=== PATIENT | female | born 1955 | race Caucasian/White ===

== ENCOUNTER → 2023-08-03 | Outpatient (CLI) | payer MEDICARE ==
[2023-08-03 18:14] LABS: Appearance,Urine Turbid (Clear); Bilirubin,Urine Negative (Negative); Blood,Urine Negative (Negative); Color,Urine Yellow (Yellow); Ketones,Urine Trace (Negative); Nitrite,Urine Negative (Negative); PH, Urine 5.5
[2023-08-03 18:23] LABS: Bacteria,Urine 1+ (None Seen)
[2023-08-03 19:02] LABS: INR 0.98 sec (0.93-1.11); Prothrombin Time 10.6 sec (9.9-11.9)
[2023-08-03 19:18] LABS: Basophils # (A) 0.08 X 10*3/uL (0.00-0.10); Basophils % (A) 0.9 %; Eosinophils # (A) 0.22 X 10*3/uL (0.04-0.35); Eosinophils % (A) 2.4 %; HCT 45.5 % (37.2-46.3); Lymphocytes # (A) 2.23 X 10*3/uL (0.90-5.00); Lymphocytes % (A) 24.5 %; MCH 29.2 pg (27.0-32.0); MCV 88.7 FL (80.0-97.0); Mean Platelet Volume 10.8 FL (9.5-12.2); Monocytes # (A) 0.85 X 10*3/uL (0.20-1.00); Monocytes % (A) 9.3 %; NRBC Per 100 WBC 0 X 10*3/uL (0.00-0.01); Neutrophils % (A) 62.6 %; Platelet Count 241 X 10*3/uL (140-440); RBC 5.13 X 10*6/uL (4.10-5.20); RDW 14.3 % (11.5-14.5); WBC 9.11 X 10*3/uL (4.50-10.00)
[2023-08-03 20:57] LABS: BUN/Creat Ratio 26.22 Ratio (12.00-20.00); Blood Urea Nitrogen 23.6 mg/dL (9.0-27.0); Calcium 9.9 mg/dL (8.7-10.3); Carbon Dioxide 23.1 mmol/L (21.6-31.8); Chloride 106 mmol/L (96-109); Glucose 99 mg/dL (70-110); Potassium 4.4 mmol/L (3.5-5.5); Sodium 145 mmol/L (135-145)
== END | disposition home or self-care (01) ==
LOC: LABWHC1 13:11
PROVIDERS: ATTEND Orthopaedic Surgery Orthopaedic Surgery of the Spine
DX: Z01.818 Encounter for other preprocedural examination (principal); Z22.322 Carrier or suspected carrier of Methicillin resistant Staphylococcus aureus; M43.10 Spondylolisthesis, site unspecified; R94.31 Abnormal electrocardiogram [ECG] [EKG]
CPT/HCPCS: 36415; 71046; 80048; 81001; 85025; 85610; 85730; 87070; 93005

== ENCOUNTER → 2023-08-16 | Outpatient (CLI) | payer MEDICARE ==
[2023-08-16 13:49] LABS: INR 0.9 (<1.2); Partial Thromboplastin Time 23.9 sec (22.0-30.0); Prothrombin Time 10.1 sec (10.0-12.5)
== END | disposition home or self-care (01) ==
LOC: LABPAT 12:29
PROVIDERS: ATTEND Orthopaedic Surgery Orthopaedic Surgery of the Spine
DX: Z01.818 Encounter for other preprocedural examination (principal)
CPT/HCPCS: 36415; 85610; 85730; 86850; 86900; 86901

== ENCOUNTER 2023-08-25 08:46 | Observation (INO) | payer MEDICARE ==
[~2023-08-25 08:46] MED LIST: LIDOCAINE 1% (10MG/ML) FOR IV START INTRADERMA PRN
[2023-08-25] MEDS: LACTATED RINGERS 1,000 ML IV SCH (09:20)
[2023-08-25] MEDS: LACTATED RINGERS 1,000 ML IV ONE ×4 (09:20→14:48)
[2023-08-25] MEDS: ONDANSETRON 4 MG/2 ML VIAL IVP ONE (09:35)
[2023-08-25] MEDS ORDERED: NEOSTIGMINE 1 MG/ML 10 ML VIAL ONE (09:44)
[2023-08-25] MEDS ORDERED: KETAMINE HCL IN 0.9 % NACL 50 MG/5 ML SYRINGE ONE (09:44)
[2023-08-25] MEDS ORDERED: ePHEDrine 50 MG/ML 1 ML VIAL ONE (09:44)
[2023-08-25] MEDS ORDERED: SUCCINYLCHOLINE CHLORIDE 200 MG/10 ML VIAL IV ONE (09:44)
[2023-08-25] MEDS ORDERED: PROPOFOL 10 MG/ML 20 ML VIAL IV ONE (09:44)
[2023-08-25] MEDS ORDERED: MIDAZOLAM 2 MG/2 ML VIAL ONE (09:44)
[2023-08-25] MEDS ORDERED: ROCURONIUM 10 MG/ML (5 ML VIAL) IV ONE (09:44)
[2023-08-25] MEDS ORDERED: HYDROmorphone (PF) 1 MG/ML ONE (09:44)
[2023-08-25] MEDS ORDERED: LIDOCAINE 1% INJ 10MG/ML (20 ML MDV) ONE (09:44)
[2023-08-25] MEDS ORDERED: GLYCOPYRROLATE 0.2 MG/ML 2 ML VIAL ONE (09:44)
[2023-08-25] MEDS ORDERED: fentaNYL (PF) 50 MCG/ML 2 ML AMP ONE (09:44)
[2023-08-25] MEDS: ceFAZolin 3 GM in SODIUM CHLORIDE 0.9% 100 ML IVPB PRN (09:48)
[2023-08-25] MEDS: ceFAZolin 1,000 MG in SODIUM CHLORIDE 0.9% IRRIGATIO 1,000 ML IRRIGATION PRN ×2 (10:25→13:29)
[2023-08-25] MEDS: LIDOCAINE 1%-EPI 1:100,000 20 ML VIAL SQ ONE (10:25)
[2023-08-25] MEDS: BUPIVACAINE (PF) 0.25% 30 ML VIAL SQ ONE (10:25)
[2023-08-25] MEDS: THROMBIN (BOVINE) 5,000 UNIT VIAL TOPICAL ONE ×2 (10:25)
[2023-08-25] MEDS: SODIUM CHLORIDE 0.9% 100 ML with ceFAZolin 3,000 MG IV ONE (13:28)
[2023-08-25] MEDS ORDERED: HYDROmorphone 1 MG/ML 1 ML SYRINGE IVP PRN (15:09)
[2023-08-25] MEDS ORDERED: SENNOSIDES-DOCUSATE SODIUM 1 EACH TAB PO PRN (15:10)
[2023-08-25] MEDS ORDERED: MAGNESIUM HYDROXIDE 2,400 MG/30 ML CUP PO PRN (15:10)
[2023-08-25] MEDS ORDERED: bisacodyL 10 MG SUPP RECTAL PRN (15:10)
--- NOTE | 2023-08-25 15:24 | P.OP ---
Date of Procedure: 08/25/23 Preoperative Diagnosis: Spinal stenosis L5-S1, L4-5 Grade 3 spondylolisthesis L5-S1, facet arthrosis L4-5 L5-S1, foraminal stenosis L4-5 L5-S1, lower extremity radiculopathy, low back pain, spondylolysis L5 bilaterally, morbid obesity Postoperative Diagnosis: Same Anesthesia: GETA Pathology: none sent Condition: stable Disposition: PACU Description of Procedure: BRIEF OPERATIVE NOTE Preoperative Diagnosis:Spinal stenosis L5-S1, L4-5 Grade 3 spondylolisthesis L5-S1, facet arthrosis L4-5 L5-S1, foraminal stenosis L4-5 L5-S1, lower extremity radiculopathy, low back pain, spondylolysis L5 bilaterally, morbid obesity Postoperative Diagnosis:Spinal stenosis L5-S1, L4-5 Grade 3 spondylolisthesis L5-S1, facet arthrosis L4-5 L5-S1, foraminal stenosis L4-5 L5-S1, lower extremity radiculopathy, low back pain, spondylolysis L5 bilaterally, morbid obesity Procedure: Open laminectomy decompression with wide bilateral foraminotomies L4- 5 L5-S1, open posterior lateral decompression and fusion L4-5 L5-S1, transforaminal interbody fusion L4-5 L5-S1 for a 360 degree fusion, use of CT guidance navigation intraoperatively for hardware placement, local autogenous bone grafting, bone marrow aspirate via the pedicle of L4, use of bone graft supplements Use of spinal neuromonitoring and Cell Saver Surgeon: Dr. Ramos Shank Tapper: Isrrael SUE who is present throughout the entire the case persistence during positioning, dissection, exposure, visualization, and all crucial elements of the case as well as closure. Anesthesia: General anesthesia per Dr. Herrera Estimated blood loss: Approximately 400 cc with 120 given back through Cell Saver Complications: None apparent Components implanted: K2M [place] cannulated pedicle screws measuring 6.5 and 8.5 mm in diameter with 2 rods and 2 capstone interbody cages with DBM bone matrix sheets to supplement the local autogenous bone graft Disposition: To recovery room in good stable condition. OPERATIVE INDICATIONS OPERATIVE SUMMARY The patient is a pleasant 67-year-old female with longstanding history of low back pain and lower extremity radicular symptoms. Patient had been treated conservatively for back pain lower extremity symptoms for extended period but she has been having significant worsening over the past several months. Patient was found to have a dynamic spondylolisthesis at L5-S1 with significant stenosis at both L4-5 and L5-S1 and obvious collapse at that level with stress testing on imaging. She had been through extensive conservative treatment however failed conservative management and exhausted conservative care. We discussed the possibility of surgical intervention with her. After discussing all the risks, patient alternatives and benefits at length, the patient elected to proceed with surgical intervention, signed informed consent, and presented for their procedure. The patient was seen and examined in the preoperative holding area and the surgical site was marked. The patient was given antibiotics and brought to the operating room. The patient was sedated and intubated by anesthesia in standard fashion. The patient was positioned on to the operating room table in a prone position on the appropriate frame which was well-padded and well molded. We were careful to pad any bony prominences and pressure points. We were careful to maintain the patient's cervical spine and good neutral alignment and position throughout. The patient was prepped and draped in a normal standard fashion. An appropriate timeout and keystone protocol performed. We were able to proceed with the surgery. The local wound area was infiltrated with local anesthetic. An incision was made at the midline longitudinally over the appropriate levels at L4-S1. Dissection was taken down subcutaneously to the level of the fascia which was split midline. The patient is morbidly obese and the positioning and dissection and exposure and the case itself was higher degree of difficulty due to increased time and technique for her body habitus. Dissection was taken over the lamina bilaterally over the facet joints and to the transverse processes from L4-S1 bilaterally. Intraoperative x-ray was taken which showed a marker at the appropriate level at L5. With the appropriate level positively confirmed, we were able to proceed with placement of the pedicle holes and screws. The patient had all their twitches back. The wound was copiously irrigated and suctioned dry as had been done periodically throughout the case. Screw holes were established similarly at each level. I was able to connect a credentialing assistant clamp for CT guidance navigation at the spinous process of L5. We able to do a spin intraoperatively with appropriate draping for CT navigation. A sharp awl Jamshidi and CT guidance navigation credentialing assistant was utilized and was used to establish the starting hole. At L4 on the right we had to revise one of the starting holes as it appeared to be medial on the imaging. We initially had some clear fluid from the site which resolved. I explored the area later and did not find any evidence of CSF leak. We are able to reposition for the L4 scr ew on the right and do appropriate positioning at each of the other screw levels L4-L5 and S1 bilaterally. The transverse process or sacral ala was decorticated with a high-speed bur. I was able to use these holes to place the appropriate size screw and good alignment and good position with good bony purchase. The S1 screw on the left did stripped the hole and we had to use a larger screw with an 8.5 millimeter screw to replace which had good fit and fill and bony purchase. When the screws were inserted there were stimulated, and found to have no stimulation at 20 mA. I was able to turn my attention to the decompression. decompression was performed with a combination of rongeurs, curettes, Kerrison rongeurs and a ball-tip feeler. All of the bone that was removed was stripped and morcellized for use as autogenous bone graft later in the case. I was able to obtain good central decompression as well as wide bilateral foraminal decompression. There is no evidence of dural tear or leak. Good hemostasis was maintained. The wound was irrigated and suctioned dry. I performed a complete facetectomy at the appropriate level on the most symptomatic side first at L5-S1 and then L4-5. At L5-S1 I remove the complete Meyer fragment and get excellent central bilateral foraminal decompression. All bone that was removed was saved for local autogenous bone grafting. I was able to gain access to the disc space at the appropriate level/levels. Good hemostasis was maintained. I was able to protect the neurologic structures. The patient had somewhat distorted anatomy at the levels. She had very vertical type lamina and it took extra time for the decompression at each level first L5- S1 and then at L4-5. A discectomy was performed. This provided further decompression. I was also able to perform complete discectomy and endplate preparation with a combination of pituitary curettes, rasps and scrapers. With the interbody space prepared, I was able to do appropriate sizing. The appropriate size cage was chosen. The wound was irrigated and suctioned dry. The interbody space was packed with local autogenous bone graft and a small portion of bone graft substitute, as was the cage itself. Protecting the soft tissue structures, I was able place the cage in good alignment and good position with good fit and fill. There is no evidence of extrusion of the graft material nor protrusion of the interbody device. I was able to get some reduction at the listhesis and had good overall alignment and position. The area was explored particularly where we had seen clear fluid earlier in the case. I did not find any evidence of further CSF leak or clear fluid or drainage. I did not find any dural tear. The wound was irrigated and suctioned dry. With the hardware intact, intraoperative x-ray was again taken which showed good alignment and position of the hardware at the appropriate levels. We were then able to measure, contour and place the rods and appropriate hardware bilaterally. I was able to place capcrews, tighten them down, and torque them off appropriately. With this intact I was able to place the local autogenous bone graft with additional bone graft enhancer as necessary into the posterior lateral gutters bilaterally. With the bone graft intact, a stable construct, and good decompression at the appropriate levels, we were able to proceed with closure. Good hemostasis was maintained. There is no evidence of dural tear or leak. The fascia was closed for a watertight closure. The subcutaneous tissue was closed over a superficial drain. The subcuticular tissue was closed with absorbable suture. The wound was cleaned and dried and dressed with the appropriate dressing. The drapes were broken down. The patient was gently rolled back onto their hospital bed being careful to maintain their cervical spine and good neutral alignment and position. They were woken up by anesthesia, extubated, and brought to the recovery room in good stable condition. The patient will be admitted to the hospital for appropriate postoperative care, medical management and monitoring. We will continue to follow them closely about the postoperative course.
[2023-08-25] MEDS: HYDROmorphone 0.5 MG/0.5 ML SYRINGE IVP PRN ×2 (15:51→22:51)
--- NOTE | 2023-08-25 16:05 | XR ---
EXAMINATION TYPE: XR lumbar spine 2 or 3V, FL guidance operating room DATE OF EXAM: 08/25/2023 Comparison: None Clinical History: 67-year-old female TRANS LUMBAR FUSION LUMBAR Findings: Intraoperative fluoroscopy during L4-S1 fusion of the lumbar spine. 31 sec fluoro time. 7960.89 mGycm2 DAP. 7 images scanned.
[2023-08-25] MEDS: droPERidol 5 MG/2 ML VIAL IVP ONE (16:07)
[2023-08-25] MEDS: BENZOCAINE/MENTHOL LOZENG 1 EACH LOZENGE MUCOUS MEM PRN (17:26)
[2023-08-25] MEDS: ceFAZolin 3 GM in SODIUM CHLORIDE 0.9% 100 ML IVPB SCH (17:26)
[2023-08-25] MEDS: GABAPENTIN 300 MG CAP PO SCH (17:26)
[2023-08-25] MEDS: ONDANSETRON 4 MG/2 ML VIAL IVP PRN (18:53)
[2023-08-25] MEDS: POTASSIUM CHLORIDE ER 20 MEQ TAB.ER PO SCH (20:17)
[2023-08-25] MEDS: METOPROLOL TARTRATE 50 MG TAB PO SCH (20:17)
[2023-08-25] MEDS: traMADol 50 MG TAB PO PRN (20:18)
--- NOTE | 2023-08-25 22:34 | CONS ---
CONSULTATION REASON FOR CONSULTATION: Advice regarding hypertension, hyperlipidemia, requested by Orthopedic Surgery. HISTORY OF PRESENT ILLNESS: This is a 67-year-old woman with a past medical history of hypertension, hyperlipidemia, underwent laminectomy and decompression for spondylolisthesis and spinal stenosis. The patient complains of some sore throat at this time. There is no history of any fever, rigors, or chills at this time. PAST MEDICAL HISTORY: Hypertension, hyperlipidemia, history of DJD. Rest of the history and rest of the chart is also reviewed. HOME MEDICATIONS: Reviewed include Ultram. Doses and rest of medications reviewed. ALLERGIES: None. FAMILY HISTORY: History of breast cancer. SOCIAL HISTORY: No history of smoking or alcohol. REVIEW OF SYSTEMS: Fourteen-point review is negative except as mentioned earlier. PHYSICAL EXAMINATION: VITAL SIGNS: Pulse 62, blood pressure 140/69, respirations 22. HEENT: Conjunctivae normal. NECK: No JVD. CARDIOVASCULAR: S1, S2. RESPIRATIONS: Breath sounds diminished at the bases. No rhonchi. No crackles. ABDOMEN: Soft, nontender. No mass. LEGS: No edema. NERVOUS SYSTEM: Nonfocal. SKIN: No ulcer, rash, bleeding. JOINTS: No active deforming arthropathy. LABORATORY DATA: The preop labs; CBC, coags, and BMP within normal limits. ASSESSMENT: 1. Status post lumbar laminectomy and decompression for lumbar spondylolisthesis and as well as spinal stenosis. 2. Hypertension. 3. Hyperlipidemia. 4. Degenerative joint disease. 5. History of gout. 6. Multiple medical issues. RECOMMENDATIONS AND DISCUSSION: This is a 67-year-old woman, who presented with multiple medical issues. At this time, I recommend to continue current medications. Monitor blood pressure closely. DVT prophylaxis. Incentive spirometry. Resume the home medications. We will closely monitor. Further recommendations to follow. Recommend close follow with primary physician after discharge. MMODL / IJN: [id number] /
[2023-08-25] MEDS: SODIUM CHLORIDE 0.9% 1,000 ML IV SCH (22:53)
[2023-08-26] MEDS: HYDROcodone/APAP 5-325MG 1 EACH TAB PO PRN (02:44)
[2023-08-26] MEDS: CYCLOBENZAPRINE 10 MG TAB PO PRN (02:45)
[2023-08-26] MEDS: LEVOTHYROXINE 100 MCG TAB PO SCH (06:54)
[2023-08-26] MEDS: SENNOSIDES-DOCUSATE SODIUM 1 EACH TAB PO SCH (08:57)
[2023-08-26] MEDS: amLODIPine 5 MG TAB PO SCH (08:57)
[2023-08-26] MEDS: ATORVASTATIN 20 MG TAB PO SCH (08:57)
[2023-08-26] MEDS: allopurinoL 300 MG TAB PO SCH (08:57)
[2023-08-26] MEDS: VALSARTAN 160 MG TAB PO SCH (08:58)
[2023-08-26] MEDS: FUROSEMIDE 80 MG TAB PO SCH (08:58)
[2023-08-26 10:31] LABS: Basophils # (A) 0.04 X 10*3/uL (0.00-0.10); Basophils % (A) 0.3 %; Eosinophils # (A) 0 X 10*3/uL (0.04-0.35); Eosinophils % (A) 0 %; HCT 37.6 % (37.2-46.3); Lymphocytes # (A) 1.16 X 10*3/uL (0.90-5.00); Lymphocytes % (A) 8.7 %; MCH 29.3 pg (27.0-32.0); MCHC 31.9 g/dL (32.0-37.0); MCV 91.7 FL (80.0-97.0); Mean Platelet Volume 10.7 FL (9.5-12.2); Monocytes # (A) 1.29 X 10*3/uL (0.20-1.00); Monocytes % (A) 9.6 %; NRBC Per 100 WBC 0 X 10*3/uL (0.00-0.01); Neutrophils # (A) 10.87 X 10*3/uL (1.80-7.70); Neutrophils % (A) 81.1 %; Platelet Count 214 X 10*3/uL (140-440); RDW 14.3 % (11.5-14.5)
[2023-08-26 10:39] LABS: BUN/Creat Ratio 15.62 Ratio (12.00-20.00); Blood Urea Nitrogen 12.5 mg/dL (9.0-27.0); Calcium 8.6 mg/dL (8.7-10.3); Carbon Dioxide 23.9 mmol/L (21.6-31.8); Chloride 107 mmol/L (96-109); Glucose 146 mg/dL (70-110); Potassium 3.6 mmol/L (3.5-5.5); Sodium 142 mmol/L (135-145)
--- NOTE | 2023-08-26 10:42 | XR ---
EXAMINATION TYPE: XR chest 1V portable DATE OF EXAM: 08/26/2023 HISTORY: Shortness of breath. COMPARISON: 08/03/2023 TECHNIQUE: Single view of the chest is submitted. FINDINGS: Demonstrated are scattered senescent parenchymal change. There is no evidence for focal infiltrate. The heart is stable. Hilar and mediastinal structures are within normal limits. Degenerative changes are seen of the dorsal spine. IMPRESSION: 1. Chronic changes without evidence for acute pulmonary disease.
--- NOTE | 2023-08-26 11:13 | P.PN ---
Progress Note - Text Progress Note Date: 08/26/23 Postoperative day #1 Patient is seen and examined today at bedside. The patient has some pain around the surgical site as expected. Pain is being controlled with medication. She has been up out of bed she is sitting in her chair. She said she was having some headaches while in bed but they seem to be subsiding while she is sitting up. Physical Exam Afebrile with stable vital signs Abdomen is soft nontender. Chest has good excursion deep and space expiration The incision site is clean dry and intact. No erythema there is no purulence. The drain is intact with small drainage Extremities have not had neurologic change from prior to surgery. She has sustained dorsiflexion plantarflexion EHL she easily able to lift her legs up off the bed and floor Calves and thighs were soft nontender without evidence of DVT. Assessment/Plan Postoperative day #1 status post open lumbar decompression and fusion L4-5 L5-S1 for her severe spondylolisthesis at L5-S1 with stenosis L4-5 L5-S1 Patient is progressing as expected from the surgery. She is already been up into a chair which is encouraging. We should discontinue her Watkins today We will continue to increase the patient's mobilization with therapy. She had a bit of headache this morning. It does not seem to be specifically po sitional. She feels that is resolving with her sitting up. Will continue to monitor this. We will continue pain control with oral or IV medications. We'll continue to follow patient closely.
[2023-08-26] MEDS: ACETAMINOPHEN TAB 325 MG TAB PO PRN (12:13)
[2023-08-26] MEDS: Acetaminophen-Codeine 300-30mg TAB PO PRN (20:13)
--- NOTE | 2023-08-26 23:28 | PN ---
PROGRESS NOTE DATE OF SERVICE: 08/26/2023 SUBJECTIVE: This is a 67-year-old woman who was admitted after lumbar laminectomy, is improving significantly. No chest pain. No palpitations. No fever. Chest x-ray showed only chronic changes. OBJECTIVE: VITAL SIGNS: Temperature 99.8, pulse 93, blood pressure 140/70, respirations 20. CHEST: Clear to auscultation. CARDIOVASCULAR: S1, S2. ABDOMEN: Soft. BACK: Status post surgery. LABORATORY DATA: WBC 13.4. ASSESSMENT: 1. Status post lumbar laminectomy and decompression for lumbar spondylolisthesis and as well as spinal stenosis. 2. Increased WBC, possibly reactive. 3. Hypertension. 4. Hyperlipidemia. 5. Degenerative joint disease. 6. History of gout. 7. Multiple medical issues. RECOMMENDATIONS: Recommend to continue current management. Continue symptomatic treatment. I will recommend repeat labs tomorrow. Incentive spirometry. Monitor for any fever. There is no evidence of any infection currently. I would also recommend UA with micro. Further recommendations to follow. MMODL / IJN: [id number] /
--- NOTE | 2023-08-27 08:43 | P.PN ---
Progress Note - Text Progress Note Date: 08/27/23 Orthopedic Spine History of present illness: Patient is a pleasant 68-year-old female who is seen and examined at the bedside following posterior lateral decompression and fusion performed Wednesday. Patient states they are doing okay post operatively. She does have some right- sided low back pain with some right lower extremity radiculopathy. Her pain is currently being managed with Tylenol #3 and cyclobenzaprine. Currently does not complain of nausea, vomiting, fever, or chills. Patient states pain has been adequately controlled. Patient is eating and voiding freely without difficulty. She has been able to ambulate to the restroom. She is currently sitting in a bedside chair. She has not had a bowel movement but is passing gas. She denies any abdominal pain. Currently, she states she is unsure whether she would feel ready for discharge home in the next couple days and would consider discharge to a rehabilitation facility. We will plan for consultation with case management for discharge planning. She is currently utilizing a walker to aid in ambulation and is encouraged to continue doing so. Patient is being seen and examined by medicine for postoperative medical management Physical Exam Lumbar Fusion: Status post surgical day number 2 Patient is awake, alert, and oriented 3 Vital signs stable Good chest excursion with deep inspiration and expiration Dorsiflexion, plantarflexion, and extensor hallucis longus positive sustained bilaterally No signs or symptoms of DVT; no calf pain; pneumatic cuffs intact bilateral lower extremities Optifoam dressings are clean, dry, and intact over the lumbar spine and right iliac crest; no erythema, purulence, or signs of infection Neurovascularly intact bilaterally lower extremities Hemovac drain is discontinued at the bedside; no active drainage from the Hemovac drain site Assessment: Status post L4-5 and L5-S1 minimally invasive posterior lateral decompression and fusion with transforaminal lumbar interbody fusion L5-S1 grade 3 spondylolisthesis L4-5 and L5-S1 facet arthrosis L4-5 and L5-S1 foraminal stenosis Right lower extremity radiculopathy L5 bilateral spondylolysis Low back pain Morbid obesity Hypertension Hypothyroidism Plan: 1. Ambulate as tolerated; work with Physical Therapy to increase mobilization 2. Continue pain control with IV and oral medications; will plan to begin we aning the patient off of IV narcotic medication in anticipation for discharge home in the next 1-2 days; she may continue with Tylenol #3 and cyclobenzaprine 3. Dressings to remain intact with Optifoam; patient may shower with dressings intact; Hemovac drain has been discontinued at the bedside 4. Medical management can continue to manage patient for patient's other medical diagnoses 5. We will continue to follow the patient closely; patient is progressing but is progressing slowly. Depending on her progress, we may plan for discharge home over the next 1 to 2 days. Given her ongoing difficulty with her mobilization and ambulation, we did discuss she may need discharge to a rehabilitation facility. Consultation has been placed with case management for discharge planning. 6. Patient can follow-up with Isrrael Lee PA-C or Dr. Jonn Ramos at [facility] in 2-3 weeks following discharge
[2023-08-27 10:31] LABS: Basophils # (A) 0.06 X 10*3/uL (0.00-0.10); Basophils % (A) 0.4 %; Eosinophils # (A) 0.01 X 10*3/uL (0.04-0.35); Eosinophils % (A) 0.1 %; HCT 36.8 % (37.2-46.3); HGB 11.7 g/dL (12.0-15.0); Lymphocytes # (A) 0.96 X 10*3/uL (0.90-5.00); Lymphocytes % (A) 6.6 %; MCH 29.9 pg (27.0-32.0); MCHC 31.8 g/dL (32.0-37.0); MCV 94.1 FL (80.0-97.0); Monocytes # (A) 1.47 X 10*3/uL (0.20-1.00); Monocytes % (A) 10.1 %; NRBC Per 100 WBC 0 X 10*3/uL (0.00-0.01); Neutrophils # (A) 11.96 X 10*3/uL (1.80-7.70); Neutrophils % (A) 82.4 %; Platelet Count 173 X 10*3/uL (140-440); RBC 3.91 X 10*6/uL (4.10-5.20); RDW 14.5 % (11.5-14.5); WBC 14.52 X 10*3/uL (4.50-10.00)
--- NOTE | 2023-08-28 01:49 | PN ---
PROGRESS NOTE DATE OF SERVICE: 08/27/2023 SUBJECTIVE: This 68-year-old woman was admitted after lumbar laminectomy, is improving significantly. No chest pain, no palpitations, no fever. OBJECTIVE: VITAL SIGNS: Pulse 82, blood pressure 140/70, respirations 15. CHEST: clear ABDOMEN: Soft. LEGS: No edema, no swelling. LABORATORY DATA: WBC 14.52. ASSESSMENT: 1. Status post lumbar laminectomy, decompression, and lumbar spondylosis as well as spinal stenosis. 2. Increased WBC, possibly reactive. 3. Hypertension. 4. Hypertension. 5. DJD. 6. History of gout. 7. Multiple medical issues. RECOMMENDATIONS: Recommended to continue current management, continue symptomatic treatment. Incentive spirometry. DVT prophylaxis. Closely follow with Orthopedic surgery. Further recommendations to follow. MMODL / IJN: [id number] / MTDD
--- NOTE | 2023-08-28 09:59 | P.PN ---
Progress Note - Text Progress Note Date: 08/28/23 Postoperative day #3 Patient is seen and examined today at bedside. She is up in a chair. We called her and he is on speaker phone with us. The patient has some pain around the surgical site as expected. Pain is being controlled with medication. She has improved her mobilization but still has troubles on her right lower extremity down her leg where she has always had issues. She does not feel very secure on her right leg when she stands but is able to stand and put full weight on her leg. She has difficulty lifting her leg up. Physical Exam Afebrile with stable vital signs Abdomen is soft nontender. Chest has good excursion deep and space expiration The incision site is clean dry and intact. No erythema there is no purulence. There is no drainage. Appears to be healing well. Extremities have not had neurologic change from prior to surgery. She has sustained dorsiflexion plantarflexion EHL intact bilaterally. She is obese. Her sensations intact. Calves and thighs were soft nontender without evidence of DVT. Assessment/Plan Postoperative day #3 status post open decompression fusion L4-5 L5-S1 for her high-grade spondylolisthesis with severe stenosis Lower extreme radiculopathy Patient is progressing as expected from the surgery. She still has significant difficulty with her ambulation but she is able to stand on her own from her chair with her walker. she still needs standby assist, and is not able to do any stairs We will continue to increase the patient's mobilization with therapy. She has not yet had a bowel movement but she is passing gas. She is tolerating regular diet. We will see if she continues to make progress and turn the corner with her mobility and independence in the next 1 to 2 days. If she is not safe for home, Wednesday, then will plan for [facility] or home with home health. We will continue pain control with oral or IV medications. We'll continue to follow patient closely.
[2023-08-28 12:57] LABS: Appearance,Urine Clear (Clear); Bilirubin,Urine Negative (Negative); Blood,Urine Negative (Negative); Color,Urine Colorless; Glucose,Urine (UA) Negative (Negative); Ketones,Urine Negative (Negative); Leukocyte Esterase,Urine Negative (Negative); Nitrite,Urine Negative (Negative); Protein,Urine Negative (Negative); Specific Gravity,Urine 1.008 (1.001-1.035); Urobilinogen,Urine <2.0 mg/dL (<2.0)
[2023-08-28] MEDS: HEPARIN SODIUM,PORCINE 5,000 UNIT/ML 1 ML VIAL SQ SCH (16:00)
--- NOTE | 2023-08-29 01:58 | PN ---
PROGRESS NOTE DATE OF SERVICE: 08/28/2023 SUBJECTIVE: This is a 68-year-old woman who was admitted after lumbar laminectomy, is being closely monitored. No chest pain, no palpitation. OBJECTIVE: VITAL SIGNS: Pulse is 75, blood pressure 100/62, respirations 16. CHEST: Clear to auscultation. CARDIOVASCULAR: S1, S2. ABDOMEN: Soft. BACK: Status post surgery. LABORATORY DATA: WBC 14.5. UA is negative. ASSESSMENT: 1. Status post lumbar laminectomy decompression for lumbar spondylolisthesis as well as spinal stenosis, increased WBC, possibly reactive. 2. Multiple medical issues. RECOMMENDATIONS: Recommended to continue current management, continue symptomatic treatment. Repeat labs. We will observe for any fever. Continue incentive spirometry. Closely follow with Orthopedic surgery. DVT prophylaxis. Further recommendations to follow. MMODL / IJN: [id number] /
--- NOTE | 2023-08-29 09:19 | P.PN ---
Progress Note - Text Progress Note Date: 08/29/23 Postoperative day #4 Patient is seen and examined today at bedside. The patient has some pain around the surgical site as expected. She feels like she is moving somewhat better but still has spasm in her back and some radicular symptoms of the right leg. She also has some occasional numbness tingling at the left small and ring finger. She has good strength in her left hand. She denies nausea or vomiting. She has not yet had a bowel movement but she is passing gas. Pain is being controlled with medication. Physical Exam Afebrile with stable vital signs Abdomen is soft nontender. Chest has good excursion deep and space expiration The incision site is clean dry and intact. No erythema there is no purulence. The dressing is intact and there is no drainage. Extremities have not had neurologic change from prior to surgery. She has sustained dorsiflexion plantarflexion EHL of bilateral lower extremities. Her thighs and calf soft nontender. Her left upper extremity she has full active and passive range of motion throughout Calves and thighs were soft nontender without evidence of DVT. Assessment/Plan Postoperative day #4 status post open decompression fusion L4-5 L5-S1 for stenosis with high-grade listhesis at L5-S1 and lower extremity radiculopathy I think the patient has some residual radicular symptoms at her right leg along with some possible radiculitis from her surgery. We had a long discussion in these regards and her strength is still intact and we can continue to monitor this as she heals and progresses over the next several weeks to months. The patient is making steady progress and is getting more mobile on her own. She is still not had a bowel movement and I think that she should have abdominal before she is able to be discharged home. Is difficult to determine if she is completely safe with her mobility and hopefully she will be okay for discharge home tomorrow eventually with home health versus the possibility of transfer to retirement tomorrow. Patient is progressing as expected from the surgery, albeit somewhat slowly with her bowel movements and we should be able to make a determination for placement tomorrow versus home. We will continue to increase the patient's mobilization with therapy. It is okay for the patient to shower with her dressing intact. We will continue pain control with oral or IV medications. We'll continue to follow patient closely.
[2023-08-29 09:26] LABS: Basophils # (A) 0.05 X 10*3/uL (0.00-0.10); Basophils % (A) 0.5 %; Eosinophils # (A) 0.24 X 10*3/uL (0.04-0.35); Eosinophils % (A) 2.2 %; HCT 31.4 % (37.2-46.3); HGB 9.9 g/dL (12.0-15.0); Lymphocytes # (A) 2.34 X 10*3/uL (0.90-5.00); Lymphocytes % (A) 21.9 %; MCHC 31.5 g/dL (32.0-37.0); MCV 95.2 FL (80.0-97.0); Mean Platelet Volume 11.2 FL (9.5-12.2); Monocytes # (A) 1.15 X 10*3/uL (0.20-1.00); Monocytes % (A) 10.8 %; NRBC Per 100 WBC 0 X 10*3/uL (0.00-0.01); Neutrophils # (A) 6.83 X 10*3/uL (1.80-7.70); Neutrophils % (A) 63.9 %; Platelet Count 197 X 10*3/uL (140-440); WBC 10.68 X 10*3/uL (4.50-10.00)
[2023-08-29 11:46] LABS: BUN/Creat Ratio 26.43 Ratio (12.00-20.00); Blood Urea Nitrogen 18.5 mg/dL (9.0-27.0); Calcium 8.4 mg/dL (8.7-10.3); Carbon Dioxide 24.1 mmol/L (21.6-31.8); Chloride 103 mmol/L (96-109); Glucose 105 mg/dL (70-110); Potassium 4.3 mmol/L (3.5-5.5); Sodium 139 mmol/L (135-145)
--- NOTE | 2023-08-29 21:58 | PN ---
PROGRESS NOTE DATE OF SERVICE: 08/29/2023 SUBJECTIVE: This 68-year-old woman was admitted after lumbar laminectomy, is improving significantly. No chest pain, no palpitations, no fever. The patient did have bowel movement. OBJECTIVE: VITAL SIGNS: Pulse 78, blood pressure n, respirations 17. CHEST: Breath sounds diminished at the bases. ABDOMEN: Soft. NERVOUS SYSTEM: Nonfocal. LABORATORY DATA: WBC 10.68, improved. Rest of the labs are noted. ASSESSMENT: 1. Status post lumbar laminectomy decompression for lumbar spondylosis as well as spinal stenosis, improving. 2. Increased WBC, possibly reactive, improving. 3. Multiple medical issues. RECOMMENDATIONS: Recommended to continue current management, continue symptomatic treatment. I will recommend repeat CBC. DVT prophylaxis. Closely follow with Dr. Hays. KIMBER / TRINA: [id number] / MTDD
[2023-08-30 08:36] LABS: Basophils # (A) 0.06 X 10*3/uL (0.00-0.10); Basophils % (A) 0.8 %; Eosinophils % (A) 3.8 %; HCT 32.2 % (37.2-46.3); HGB 10.6 g/dL (12.0-15.0); Lymphocytes # (A) 1.96 X 10*3/uL (0.90-5.00); Lymphocytes % (A) 24.9 %; MCH 30.1 pg (27.0-32.0); MCHC 32.9 g/dL (32.0-37.0); MCV 91.5 FL (80.0-97.0); Monocytes % (A) 11.4 %; NRBC Per 100 WBC 0 X 10*3/uL (0.00-0.01); Neutrophils # (A) 4.61 X 10*3/uL (1.80-7.70); Neutrophils % (A) 58.5 %; Platelet Count 203 X 10*3/uL (140-440); RBC 3.52 X 10*6/uL (4.10-5.20); WBC 7.88 X 10*3/uL (4.50-10.00)
--- NOTE | 2023-08-30 09:17 | P.DS ---
Providers Date of admission: 08/27/23 14:24 Expected date of discharge: 08/30/23 Attending physician: Lilly Ramos Consults: 08/25/23 15:10 Consult Physician Routine Consulting Provider: Shannan Kuhn Consult Reason/Comments: Medical management Do you want consulting provider notified?: Yes Primary care physician: Stephanie Pat DO - Discharge Diagnosis(es) (1) Status post lumbar spinal fusion Current Visit: Yes Status: Acute (2) Spondylolysis of lumbar region Current Visit: Yes Status: Acute (3) Spondylolisthesis, grade 3 Current Visit: Yes Status: Acute (4) Low back pain Current Visit: Yes Status: Acute (5) Foraminal stenosis of lumbar region Current Visit: Yes Status: Acute (6) Lumbar facet arthropathy Current Visit: Yes Status: Acute (7) Lumbar back pain with radiculopathy affecting right lower extremity Current Visit: Yes Status: Acute (8) Morbid obesity Current Visit: Yes Status: Acute (9) Hypertension Current Visit: Yes Status: Acute (10) Hypothyroidism Current Visit: Yes Status: Acute Hospital Course: Patient is a pleasant 68-year-old female who presented with L5-S1 grade 3 spondylolisthesis, L4-5 and L5-S1 facet arthrosis, L4-5 and L5-S1 foraminal stenosis, Right lower extremity radiculopathy, low back pain, and L5 bilateral spondylolysis who failed outpatient conservative therapy. She was admitted for an L4-5 and L5-S1 minimally invasive posterior lateral decompression and fusion with transforaminal lumbar interbody fusion. She has been progressing slowly postoperatively. She has made some progress over the weekend but still does not feel she could manage at home. Currently, we are planning for discharge to a rehabilitation facility if medically cleared and approved by her insurance. Patient feels she would be ready for discharge to rehab today. Condition on day of discharge stable. Patient will be discharged rehab. Donavon alcocer was previously cleared for surgical intervention. Patient currently denies any nausea, vomiting, fever, or chills. Patient is eating and voiding freely without difficulty. Surgical dressing has been removed. Patient may shower without a dressing at that time. Patient should refrain from driving until at least after their first follow-up appointment in the office. Patient should avoid excessive bending, lifting, and twisting; no lifting greater than 10 pounds. She is encouraged to utilize a walker to aid in ambulation as needed. MAPS has been reviewed. An "Opiod Start Talking" Form has been signed and placed in the patient's chart. A prescription has been written for tramadol 50 mg, 1-2 tabs, every 6 hours, as needed for acute pain, dispense #56 and placed in the patient's chart. She is given prescription for cyclobenzaprine, 10 mg, 1 tab, 3 times daily, as needed for muscle spasm, dispense #60. Prescription for Senokot-S, 1 tab, twice daily, as needed for constipation, dispense #60. She may resume her other previously prescribed home medications while avoiding anti-inflammatory medications over the next 6 weeks postoperatively. Patient needs medical clearance prior to discharge to rehab. Medicine to complete the med rec. Patient's other medical diagnoses include hypertension, hypothyroidism, and morbid obesity. Patient has had a bowel movement. Physical Exam Lumbar Fusion: Status post surgical day number 5 Patient is awake, alert, and oriented 3 Vital signs stable Good chest excursion with deep inspiration and expiration Dorsiflexion, plantarflexion, and extensor hallucis longus positive sustained bilaterally No signs or symptoms of DVT; no calf pain; pneumatic cuffs intact bilateral lower extremities Optifoam dressings are clean, dry, and intact over the lumbar spine Surgical dressing has been removed. No erythema, purulence, active drainage, or signs of infection at the surgical incision site Patient is able to perform good dorsiflexion plantarflexion bilaterally Procedures: L4-5 and L5-S1 minimally invasive posterior lateral decompression and fusion with transforaminal lumbar interbody fusion Patient Condition at Discharge: Stable Plan - Discharge Summary Discharge Rx Participant: Yes New Discharge Prescriptions: New Cyclobenzaprine [Flexeril] 10 mg PO TID PRN #60 tab PRN Reason: Muscle Spasm traMADol HCl [Ultram] 50 mg PO Q6H PRN #56 tab PRN Reason: Pain Sennosides-Docusate Sodium [Senokot-S] 1 tab PO BID PRN #60 tablet PRN Reason: Constipation No Action Metoprolol Tartrate [Lopressor] 50 mg PO BID Furosemide [Lasix] 80 mg PO DAILY traMADol HCL 50 mg PO BID PRN PRN Reason: Pain Rosuvastatin [Crestor] 10 mg PO DAILY Potassium Chloride ER [K-Dur 20] 20 meq PO BID Levothyroxine Sodium [Synthroid] 100 mcg PO DAILY allopurinoL 600 mg PO DAILY Amlodipine Besylate/Valsartan [Amlodipine Besylate/Valsartan 5-320 mg] 1 tab PO DAILY Gabapentin 300 mg PO TID Unk Tumeric Gummie 1 tab PO DAILY Unk Naprosyn 1 tab PO DAILY PRN PRN Reason: Pain Discharge Medication List Amlodipine Besylate/Valsartan [Amlodipine Besylate/Valsartan 5-320 mg] 1 tab PO DAILY 08/20/23 [History] Furosemide [Lasix] 80 mg PO DAILY 08/20/23 [History] Gabapentin 300 mg PO TID 08/20/23 [History] Levothyroxine Sodium [Synthroid] 100 mcg PO DAILY 08/20/23 [History] Metoprolol Tartrate [Lopressor] 50 mg PO BID 08/20/23 [History] Potassium Chloride ER [K-Dur 20] 20 meq PO BID 08/20/23 [History] Rosuvastatin [Crestor] 10 mg PO DAILY 08/20/23 [History] Unk Naprosyn 1 tab PO DAILY PRN 08/20/23 [History] Unk Tumeric Gummie 1 tab PO DAILY 08/20/23 [History] allopurinoL 600 mg PO DAILY 08/20/23 [History] traMADol HCL 50 mg PO BID PRN 08/20/23 [History] Cyclobenzaprine [Flexeril] 10 mg PO TID PRN #60 tab 08/30/23 [Rx] Sennosides-Docusate Sodium [Senokot-S] 1 tab PO BID PRN #60 tablet 08/30/23 [Rx] traMADol HCl [Ultram] 50 mg PO Q6H PRN #56 tab 08/30/23 [Rx] Follow up Appointment(s)/Referral(s): Isrrael Lee PAC [PHYSICIAN AIRCRAFT ELECTRICIAN] - 09/06/23 3:30 pm (Patient may follow-up with Isrrael Lee PA-C or Dr. Jonn Ramso at [facility] in 2-3 weeks following discharge. ) Activity/Diet/Wound Care/Special Instructions: 1. Patient may shower with Optifoam dressing intact. 2. Patient may remove Optifoam dressing in 3 days and shower without a dressing at that time. 3. Patient should refrain from driving until at least after their first follow- up appointment in the office. 4. Patient should avoid excessive bending, twisting, lifting; avoid overhead lifting; no lifting greater than 10 pounds 5. Take medications as prescribed 6. Patient may utilize walker to aid in ambulation as needed. 7. Patient should avoid anti-inflammatory medications over the next 6 weeks postoperatively 8. Do not soak in tub Discharge Disposition: TRANSFER TO SNF/ECF
--- NOTE | 2023-08-30 21:30 | PN ---
PROGRESS NOTE DATE OF SERVICE: 08/30/2023 SUBJECTIVE: This 68-year-old woman was admitted with lumbar laminectomy symptoms and significant no chest pain no palpitation. OBJECTIVE: VITAL SIGNS: Pulse is 73 blood pressure 120/27 respirations 17 chest is diffuse #7 issues. ABDOMEN: Soft, nontender legs no stroke. LABORATORY DATA: WBC 7.8. ASSESSMENT: 1. Status post lumbar laminectomy decompression for lumbar spondylolysis as well as spinous is improving. 2. Increased WBC, possibly reactive, improved. 3. Multiple medical issues. RECOMMENDATIONS: Recommended to continue current management recommend resume the home medications. Follow closely with primary physician. DVT prophylaxis and rest of the recommendations per Orthopedic surgery. MMODL / IJN: [id number] /
[2023-08-31 02:07] VITALS: PULSE 71
[2023-08-31 07:36] VITALS: BP 107/69; RESP 18; TEMP 98.4
--- NOTE | 2023-08-31 08:35 | P.DS ---
Providers Date of admission: 08/27/23 14:24 Expected date of discharge: 08/31/23 Attending physician: Lilly Ramos Consults: 08/25/23 15:10 Consult Physician Routine Consulting Provider: Shannan Kuhn Consult Reason/Comments: Medical management Do you want consulting provider notified?: Yes Primary care physician: Stephanie Pat DO - Discharge Diagnosis(es) (1) Status post lumbar spinal fusion Current Visit: Yes Status: Acute (2) Spondylolysis of lumbar region Current Visit: Yes Status: Acute (3) Spondylolisthesis, grade 3 Current Visit: Yes Status: Acute (4) Low back pain Current Visit: Yes Status: Acute (5) Foraminal stenosis of lumbar region Current Visit: Yes Status: Acute (6) Lumbar facet arthropathy Current Visit: Yes Status: Acute (7) Lumbar back pain with radiculopathy affecting right lower extremity Current Visit: Yes Status: Acute (8) Morbid obesity Current Visit: Yes Status: Acute (9) Hypertension Current Visit: Yes Status: Acute (10) Hypothyroidism Current Visit: Yes Status: Acute Hospital Course: Patient is a pleasant 68-year-old female who presented with L5-S1 grade 3 spondylolisthesis, L4-5 and L5-S1 facet arthrosis, L4-5 and L5-S1 foraminal stenosis, Right lower extremity radiculopathy, low back pain, and L5 bilateral spondylolysis who failed outpatient conservative therapy. She was admitted for an L4-5 and L5-S1 minimally invasive posterior lateral decompression and fusion with transforaminal lumbar interbody fusion. She has been progressing slowly postoperatively. She has made some progress over the weekend but still does not feel she could manage at home. Currently, we are planning for discharge to a rehabilitation facility if medically cleared and approved by her insurance. Insurance authorization was received yesterday. Case management states a bed is available today. Patient is planning for discharge to rehab today. Discharge was canceled yesterday due to not obtaining authorization or bed availability. Patient feels she would be ready for discharge to rehab today. Condition on day of discharge stable. Patient will be discharged rehab. Patient was previously cleared for surgical intervention. Patient currently denies any nausea, vomiting, fever, or chills. Patient is eating and voiding freely without difficulty. Surgical dressing has been removed. Patient may shower without a dressing at that time. Patient should refrain from driving until at least after their first follow-up appointment in the office. Patient should avoid excessive bending, lifting, and twisting; no lifting greater than 10 pounds. She is encouraged to utilize a walker to aid in ambulation as needed. MAPS has been reviewed. An "Opiod Start Talking" Form has been signed and placed in the patient's chart. A prescription has been written for tramadol 50 mg, 1-2 tabs, every 6 hours, as needed for acute pain, dispense #56 and placed in the patient's chart. She is given prescription for cyclobenzaprine, 10 mg, 1 tab, 3 times daily, as needed for muscle spasm, dispense #60. Prescription for Senokot-S, 1 tab, twice daily, as needed for constipation, dispense #60. She may resume her other previously prescribed home medications while avoiding anti-inflammatory medications over the next 6 weeks postoperatively. Patient needs medical clearance prior to discharge to rehab. Medicine to complete the med rec. Patient's other medical diagnoses include hypertension, hypothyroidism, and morbid obesity. Patient has had a bowel movement. Physical Exam Lumbar Fusion: Status post surgical day number Patient is awake, alert, and oriented 3 Vital signs stable Good chest excursion with deep inspiration and expiration Dorsiflexion, plantarflexion, and extensor hallucis longus positive sustained bilaterally No signs or symptoms of DVT; no calf pain; pneumatic cuffs intact bilateral lower extremities No erythema, purulence, active drainage, or signs of infection at the surgical incision site Calves are soft nontender Pneumatic cuffs intact bilaterally Patient is able to perform good dorsiflexion plantarflexion bilaterally Patient Condition at Discharge: Stable Plan - Discharge Summary Discharge Rx Participant: Yes New Discharge Prescriptions: New Cyclobenzaprine [Flexeril] 10 mg PO TID PRN #60 tab PRN Reason: Muscle Spasm traMADol HCl [Ultram] 50 mg PO Q6H PRN #56 tab PRN Reason: Pain Sennosides-Docusate Sodium [Senokot-S] 1 tab PO BID PRN #60 tablet PRN Reason: Constipation No Action Metoprolol Tartrate [Lopressor] 50 mg PO BID Furosemide [Lasix] 80 mg PO DAILY traMADol HCL 50 mg PO BID PRN PRN Reason: Pain Rosuvastatin [Crestor] 10 mg PO DAILY Potassium Chloride ER [K-Dur 20] 20 meq PO BID Levothyroxine Sodium [Synthroid] 100 mcg PO DAILY allopurinoL 600 mg PO DAILY Amlodipine Besylate/Valsartan [Amlodipine Besylate/Valsartan 5-320 mg] 1 tab PO DAILY Gabapentin 300 mg PO TID Unk Tumeric Gummie 1 tab PO DAILY Unk Naprosyn 1 tab PO DAILY PRN PRN Reason: Pain Discharge Medication List Amlodipine Besylate/Valsartan [Amlodipine Besylate/Valsartan 5-320 mg] 1 tab PO DAILY 08/20/23 [History] Furosemide [Lasix] 80 mg PO DAILY 08/20/23 [History] Gabapentin 300 mg PO TID 08/20/23 [History] Levothyroxine Sodium [Synthroid] 100 mcg PO DAILY 08/20/23 [History] Metoprolol Tartrate [Lopressor] 50 mg PO BID 08/20/23 [History] Potassium Chloride ER [K-Dur 20] 20 meq PO BID 08/20/23 [History] Rosuvastatin [Crestor] 10 mg PO DAILY 08/20/23 [History] Unk Naprosyn 1 tab PO DAILY PRN 08/20/23 [History] Unk Tumeric Gummie 1 tab PO DAILY 08/20/23 [History] allopurinoL 600 mg PO DAILY 08/20/23 [History] traMADol HCL 50 mg PO BID PRN 08/20/23 [History] Cyclobenzaprine [Flexeril] 10 mg PO TID PRN #60 tab 08/30/23 [Rx] Sennosides-Docusate Sodium [Senokot-S] 1 tab PO BID PRN #60 tablet 08/30/23 [Rx] traMADol HCl [Ultram] 50 mg PO Q6H PRN #56 tab 08/30/23 [Rx] Follow up Appointment(s)/Referral(s): Isrrael Lee PAC [PHYSICIAN STORE MANAGEMENT TRAINEE] - 09/06/23 3:30 pm (Patient may follow-up with Isrrael Lee PA-C or Dr. Jonn Ramos at [facility] in 2-3 weeks following discharge. ) Activity/Diet/Wound Care/Special Instructions: 1. Patient may shower with Optifoam dressing intact. 2. Patient may remove Optifoam dressing in 3 days and shower without a dressing at that time. 3. Patient should refrain from driving until at least after their first follow- up appointment in the office. 4. Patient should avoid excessive bending, twisting, lifting; avoid overhead lifting; no lifting greater than 10 pounds 5. Take medications as prescribed 6. Patient may utilize walker to aid in ambulation as needed. 7. Patient should avoid anti-inflammatory medications over the next 6 weeks postoperatively 8. Do not soak in tub Discharge Disposition: TRANSFER TO SNF/ECF
--- NOTE | 2023-08-31 14:04 | PN ---
PROGRESS NOTE DATE OF SERVICE: 08/31/2023 SUBJECTIVE: This is a 68-year-old woman, who was admitted after lumbar laminectomy and decompression. She is improving significantly. No chest pain. No palpitations. No fever. ECF rehab is planned. OBJECTIVE: VITAL SIGNS: Pulse 71, blood pressure 107/62, respirations 18. CHEST: Clear to auscultation. CARDIOVASCULAR: S1, S2. ABDOMEN: Soft. NERVOUS SYSTEM: Nonfocal. BACK: Status post surgery. LABORATORY DATA: Reviewed. WBC normal. ASSESSMENT: 1. Status post lumbar laminectomy and decompression for lumbar spondylosis as well as spinal stenosis. 2. Increased WBC, possibly reactive, improved. 3. Multiple medical issues. RECOMMENDATIONS: Recommended to continue current management. Continue symptomatic treatment. Incentive spirometry. Resume the home medications. Follow closely with primary physician. Rest of the recommendations per Orthopedic Surgery. MMODL / IJN: [id number] /
== END 2023-08-31 14:14 ==
LOC: OR 08:46 → 4SSUR 15:05 → OR 08-27 14:24
PROVIDERS: ADMIT Orthopaedic Surgery Orthopaedic Surgery of the Spine; ATTEND Orthopaedic Surgery Orthopaedic Surgery of the Spine
DX: M43.17 Spondylolisthesis, lumbosacral region (principal); M47.26 Other spondylosis with radiculopathy, lumbar region; M47.27 Other spondylosis with radiculopathy, lumbosacral region; M48.061 Spinal stenosis, lumbar region without neurogenic claudication; M48.07 Spinal stenosis, lumbosacral region; R51.9 Headache, unspecified; D72.829 Elevated white blood cell count, unspecified; I10 Essential (primary) hypertension; E78.5 Hyperlipidemia, unspecified; E03.9 Hypothyroidism, unspecified; M10.9 Gout, unspecified; E66.01 Morbid (severe) obesity due to excess calories; Z68.43 Body mass index [BMI] 50.0-59.9, adult; Z79.890 Hormone replacement therapy; Z79.899 Other long term (current) drug therapy
CPT/HCPCS: 22612; 22614; 22840; 20936; 96376; 96365; 96366; 96372 ×4; 96375; 94760; 97116; 97530 ×2; 97161; 97535; 97166; 86891; 80048 ×2; 84132; 85025 ×4; 81003; 72100; 71045; G0378 ×5; C1713; J2250; J0330; J1644 ×4; J2710; J0690 ×3; J2405; J2001; J3010; J1170 ×3; J2704; J0665; J1596